=== PATIENT | male | born 1980 | race Caucasian/White ===

== ENCOUNTER 2018-02-22 15:52 | Emergency (ER) | payer OTHER ==
[2018-02-22 16:19] VITALS: RESP 18
[2018-02-22] MEDS ORDERED: CEPHALEXIN 500 MG CAP PO STA (16:53)
[2018-02-22] MEDS ORDERED: DIPH,PERTUS(ACELL)TETVAC-LF 0.5 ML VIAL IM ONE (16:56)
--- NOTE | 2018-02-22 16:59 | ED ---
Skin/Abscess/FB HPI - General Chief complaint: Skin/Abscess/Foreign Body Stated complaint: Splinter in leg Time Seen by Provider: 02/22/18 16:31 Source: patient, RN notes reviewed Mode of arrival: ambulatory Limitations: no limitations - History of Present Illness Initial comments: This is a 37-year-old male who presents to the emergency department with chief complaint of right leg splinter. Patient states that a week and a half ago he was working with wood [employer]. He states that a piece of the wood became lodged in his right leg. He states he was able to remove a piece of the wood from one end of the wound and then approximately 5 days ago he opened the wound back up and removed another piece. Patient states that it has healed over but he still feels that there is a piece of wood still stuck in there. He states that the area is tender and has developed some redness. Patient states he is not up-to- date with his tetanus vaccination. Denies any ALLERGIES. Denies any other injuries or trauma. Denies fevers or chills, chest pain or shortness of breath , abdominal pain, nausea or vomiting. - Related Data Previous Rx's Medication Instructions Recorded Cephalexin [Keflex] 500 mg PO Q12HR #20 cap 02/22/18 Allergies Allergy/AdvReac Type Severity Reaction Status Date / Time No Known Allergies Allergy Verified 02/22/18 16:18 Review of Systems ROS Statement: Those systems with pertinent positive or pertinent negative responses have been documented in the HPI. ROS Other: All systems not noted in ROS Statement are negative. Past Medical History Past Medical History: No Reported History History of Any Multi-Drug Resistant Organisms: None Reported Past Surgical History: No Surgical Hx Reported Past Psychological History: No Psychological Hx Reported Smoking Status: Current every day smoker Past Alcohol Use History: Daily Past Drug Use History: None Reported General Exam - General Exam Comments Initial Comments: General: Awake and alert, well-developed; in no apparent distress. HEENT: Head atraumatic, normocephalic. Pupils are equal, round and reactive to light. Extraocular movements intact. Oropharynx moist without erythema or exudate. Neck: Supple. Normal ROM. Cardiovascular: Regular rate and rhythm. No murmurs, rubs or gallops. Chest symmetrical. Pedal pulses are 2+ equal and palpable bilaterally. Respiratory: Lungs clear to auscultation bilaterally. No wheezes, rales or rhonchi. Normal respiratory effort with no use of accessory muscles. Musculoskeletal: Normal ROM, no tenderness bilateral upper and lower extremities. Ambulating normally. Skin: Approximately 3 cm, well-healing linear laceration right medial ankle. Surrounding erythema, mild warmth and tenderness. Chronic hyperpigmentation noted to bilateral lower extremities. Neurological: Alert and oriented x3. CN II-XII grossly intact. Speech is fluent and answers are appropriate. No focal neuro deficits. Psychiatric: Normal mood and affect. No overt signs of depression or anxiety noted. Limitations: no limitations Course Vital Signs 02/22/18 16:17 Temperature 99 F Pulse Rate 90 Respiratory 18 Rate Blood Pressure 124/85 O2 Sat by Pulse 93 L Oximetry Medical Decision Making - Medical Decision Making This is a 37-year-old male who presents to the emergency department with chief complaint of right leg splinter. Patient reports getting a piece of wood stuck into his right ankle about a week and a half ago. He states that he was able to remove a couple pieces but believes that a foreign body remains. On physical examination, there is a well-healing wound where skin was penetrated with the wood to the right medial ankle. There is surrounding erythema and the area is tender. Patient will be started on Keflex to treat for potential infection. He denies any fevers or chills. X-ray of the right ankle revealed medial soft tissue swelling with no evidence for a radiopaque foreign body. Case was discussed with attending physician, Dr. Saab. Patient's vital signs are stable and he is in no acute distress. He will be discharged home at this time. He is in agreement with plan and voices understanding. All questions were answered. - Radiology Data Radiology results: report reviewed X-ray right ankle findings: There is no fracture or malalignment. Mortise is intact. The soft tissues show soft tissue swelling, particularly medially. No radiopaque foreign bodies. Impression: Medial soft tissue swelling. Disposition Clinical Impression: Cellulitis Disposition: HOME SELF-CARE Condition: Good Instructions: Cellulitis (ED) Additional Instructions: Please take medications as prescribed. Please follow up with primary care provider within 1-2 days. Return to emergency department if symptoms should worsen or any concerns arise. Prescriptions: Cephalexin [Keflex] 500 mg PO Q12HR #20 cap Is patient prescribed a controlled substance at d/c from ED?: No Referrals: None,Stated [Primary Care Provider] - 1-2 days Time of Disposition: 17:32
--- NOTE | 2018-02-22 17:17 | XR ---
PROCEDURE: XR ankle complete RT, 3 views DATE AND TIME: 02/22/2018 5:11 PM REFERRING PHYSICIAN: Sylvia Alba CLINICAL INDICATION: PHH, r/o fb medial ankle TECHNIQUE: Department protocol. COMPARISON: None FINDINGS: There is no fracture or malalignment. Mortise is intact. The soft tissues show soft tissue swelling, particularly medially. No radiopaque foreign bodies. IMPRESSION: Medial soft tissue swelling.
[2018-02-22 17:40] VITALS: BP 128/75; PULSE 85; TEMP 97
== END 2018-02-22 17:43 | disposition home or self-care (01) ==
LOC: EC 15:52
DX: L03.115 Cellulitis of right lower limb (principal); F17.200 Nicotine dependence, unspecified, uncomplicated; Z23 Encounter for immunization
CPT/HCPCS: 90471; 90715; 99283